=== PATIENT | female | born 1945 | race Caucasian/White ===

== ENCOUNTER → 2017-11-01 10:39 | Outpatient (CLI) | payer BC, SELFPAY ==
--- NOTE | 2017-11-01 10:42 | BI_ITS ---
MAMMOGRAPHY - BILATERAL SCREENING REASON FOR EXAM: Female, 71 years old. Routine annual screening examination. PERTINENT HISTORY: Mother with breast cancer. Aunts with breast cancer. TECHNIQUE: Digital bilateral breast jamaal (3D mammographic acquisition) in the CC and MLO projections. 2-D mediolateral oblique (MLO) and craniocaudad (CC) views of both breasts were obtained. CAD: Full Field Digital Mammography with Computer Added Detection was performed. COMPARISON: Comparison is made with prior study dated October 27, 2016 and October 27, 2015. FINDINGS: Breast Composition: The breasts are heterogeneously dense, which may obscure small masses. There are no dominant masses or suspicious calcifications. No other significant abnormalities are identified. There has been no significant change since the prior study. BI/SCREENING MAMM (CAD), BILAT IMPRESSION: Stable bilateral screening mammogram. Yearly follow-up mammogram recommended. (A) ASSESSMENT CATEGORY: BIRADS Category 1: Negative. A letter regarding these results will be sent to the patient by the facility within 30 days. Approximately 10% of breast cancers are not detected by mammography. A normal mammogram should not delay biopsy of a clinically suspicious abnormality. [id number] Electronically Signed: Case Ross MD at 12:11 EDT Tel [phone], Service support ,
== END ==
PROVIDERS: Family Provider Family Medicine; PCP Family Medicine; Visit Provider Family Medicine
DX: Z12.31 Encounter for screening mammogram for malignant neoplasm of breast (principal)
CPT/HCPCS: 77063; 77067

== ENCOUNTER → 2018-03-28 12:58 | Outpatient (CLI) | payer MEDICARE, SELFPAY ==
--- NOTE | 2018-03-28 13:10 | RAD_ITS ---
STUDY: X-RAY - RIGHT HUMERUS REASON FOR EXAM: Female, 72 years old. Right rotator cuff tendinitis. TECHNIQUE: 2 view(s) of the humerus. COMPARISON: None. FINDINGS: Normal visualized humerus. There is no demonstrated fracture or osseous destructive process. There is no demonstrated soft tissue abnormality. RAD/Humerus min 2 Views IMPRESSION: Normal x-ray examination of the right humerus. Electronically Signed: Ryley Parrish MD at 14:39 EDT , Service support ,
== END ==
PROVIDERS: Family Provider Family Medicine; PCP Family Medicine; Referring Provider Family Medicine; Visit Provider Family Medicine
DX: M75.81 Other shoulder lesions, right shoulder (principal)
CPT/HCPCS: 73060

== ENCOUNTER → 2018-04-11 09:48 | Outpatient (CLI) | payer MEDICARE, SELFPAY ==
--- NOTE | 2018-04-11 09:50 | US_ITS ---
STUDY: ABDOMINAL ULTRASOUND REASON FOR EXAM: Female, 72 years old. Elevated liver function tests. Cholelithiasis. Bloating. TECHNIQUE: Transabdominal ultrasound was performed with real-time and static guy scale imaging. TECHNICAL QUALITY: Adequate. COMPARISON: CT abdomen and pelvis October 13, 2015. FINDINGS: Liver: The liver measures 13.8 cm. There is normal echogenicity of the liver from the images provided. The bile ducts are within normal limits. There is hepatic color flow. The direction of portal flow is hepatopetal. There is no demonstrated mass lesion. Gallbladder: Normal distended gallbladder. The gallbladder wall measures 2 mm. There is a negative sonographic Pelaez's sign. There is no pericholecystic fluid. There are multiple echogenic structures within the gallbladder, consistent with multiple gallstones. Largest stone measures 2.1 x 1.6 x 1.4 cm. Gallbladder sludge. Common Bile Duct (C.B.D.): The common bile duct measures 4 mm. Pancreas: Normal size of the head, body and tail of the pancreas. There is normal echogenicity of the pancreas. There is no demonstrated pancreatic mass or cyst. Spleen: Normal size of the spleen. The spleen measures 8.6 cm. Right Kidney: Normal size of the right kidney. The right kidney measures 10.5 cm. Normal renal cortex. The right cortex measures 1.5 cm. There is no demonstrated renal mass or cyst. There is no right hydronephrosis. 3 mm nonobstructing renal calculus. Left Kidney: Normal size of the left kidney. The left kidney measures 10.9 cm. Normal renal cortex. The left cortex measures 1.8 cm. Renal simple cysts measuring 1.0 x 0.9 x 0.8 cm and 0.9 x 0.8 x 0.8 cm. There is no left hydronephrosis. 3 mm nonobstructing renal calculus. Aorta: Not dilated , mild atherosclerotic plaque. I.V.C.: The IVC is patent. There is no ascites. US/Abdomen Complete IMPRESSION: Cholelithiasis noted previously. Small simple left renal cysts. Small bilateral nonobstructing renal calculi. Electronically Signed: Hema Evans MD at 6:13 EST , Service support ,
== END ==
PROVIDERS: Family Provider Family Medicine; PCP Family Medicine; Referring Provider Family Medicine; Visit Provider Family Medicine
DX: R94.5 Abnormal results of liver function studies (principal)
CPT/HCPCS: 76700

== ENCOUNTER → 2018-11-10 10:41 | Outpatient (CLI) | payer MEDICARE, SELFPAY ==
--- NOTE | 2018-11-10 10:47 | BI_ITS ---
MAMMOGRAPHY - BILATERAL SCREENING REASON FOR EXAM: Female, 72 years old. Routine annual screening examination. PERTINENT HISTORY: Mother with breast cancer. Aunts with breast cancer. TECHNIQUE: Digital bilateral breast adalberto (3D mammographic acquisition) in the CC and MLO projections. 2-D mediolateral oblique (MLO) and craniocaudad (CC) views of both breasts were obtained. CAD: Full Field Digital Mammography with Computer Added Detection was performed. COMPARISON: Comparison is made with prior study dated November 01, 2017 and October 27, 2016. FINDINGS: Breast Composition: The breasts are heterogeneously dense, which may obscure small masses. There are no dominant masses or suspicious calcifications. No other significant abnormalities are identified. There has been no significant change since the prior study. BI/SCREEN MAMM (CAD) W/ADALBERTO BILAT IMPRESSION: Stable bilateral screening mammogram. Yearly follow-up mammogram recommended. (A) ASSESSMENT CATEGORY: BIRADS Category 1: Negative. A letter regarding these results will be sent to the patient by the facility within 30 days. Approximately 10% of breast cancers are not detected by mammography. A normal mammogram should not delay biopsy of a clinically suspicious abnormality. [id number] Electronically Signed: Case Ross, at 13:33 EDT , Service support ,
== END ==
PROVIDERS: Family Provider Family Medicine; PCP Family Medicine; Referring Provider Family Medicine; Visit Provider Family Medicine
DX: Z12.31 Encounter for screening mammogram for malignant neoplasm of breast (principal)
CPT/HCPCS: 77063; 77067

== ENCOUNTER → 2019-03-19 10:58 | Outpatient (CLI) | payer MEDICARE, SELFPAY ==
--- NOTE | 2019-03-19 11:30 | RAD_ITS ---
STUDY: X-RAY - RIGHT SHOULDER REASON FOR EXAM: Female, 73 years old. PAIN IN PROXIMAL RIGHT HUMERUS INTO SHOULDER FOR ABOUT 3 MONTHS. TECHNIQUE: 4 view(s) of the shoulder. COMPARISON: None. FINDINGS: Normal glenohumeral articulation. There is degenerative arthrosis of the acromioclavicular joint without inferior osseous spur formation. Normal acromion. Normal humeral head and visualized proximal humerus. The soft tissue structures are unremarkable. Normal visualized pulmonary apex. RAD/Shoulder min 2 Views IMPRESSION: There is degenerative arthrosis of the acromioclavicular joint. Electronically Signed: Abhi Toledo, at 8:17 EDT Tel , Service support ,
== END ==
PROVIDERS: Family Provider Family Medicine; PCP Family Medicine; Referring Provider Family Medicine; Visit Provider Family Medicine
DX: M75.81 Other shoulder lesions, right shoulder (principal)
CPT/HCPCS: 73030

== ENCOUNTER → 2019-07-03 10:21 | Outpatient (CLI) | payer MEDICARE, SELFPAY ==
--- NOTE | 2019-07-03 10:28 | RAD_ITS ---
STUDY: X-RAY - LEFT SHOULDER REASON FOR EXAM: Female, 73 years old. Pt. States she had an injury just before 2018, large object fell off of a shelf and hit her mid humerus. Still having mid humeral pain, Ordering doctor requested two view shoulder.... included mid humerus to show area of actual pain TECHNIQUE: 4 view(s) of the shoulder. COMPARISON: None. FINDINGS: Normal glenohumeral articulation. There is degenerative arthrosis of the acromioclavicular joint without inferior osseous spur formation. Normal acromion. Normal humeral head and visualized proximal humerus. There is periarticular soft tissue calcification consistent with a calcific tendinitis. Normal visualized pulmonary apex. RAD/Shoulder min 2 Views IMPRESSION: Mild bony osteopenia. Calcific tendinosis. No visualized acute fracture. Electronically Signed: Fara Saha MD at 23:48 EST Tel , Service support ,
== END ==
LOC: RAD 10:25
PROVIDERS: PCP Family Medicine; Referring Provider Family Medicine; Visit Provider Family Medicine
DX: M79.602 Pain in left arm (principal)
CPT/HCPCS: 73030

== ENCOUNTER → 2019-11-16 11:38 | Outpatient (CLI) | payer MEDICARE, SELFPAY ==
--- NOTE | 2019-11-16 11:56 | BI_ITS ---
MAMMOGRAPHY - BILATERAL SCREENING REASON FOR EXAM: Female, 73 years old. Routine annual screening examination. PERTINENT HISTORY: Mother with breast cancer. Aunts with breast cancer. TECHNIQUE: Digital bilateral breast adalberto (3D mammographic acquisition) in the CC and MLO projections. 2-D mediolateral oblique (MLO) and craniocaudad (CC) views of both breasts were obtained. CAD: Full Field Digital Mammography with Computer Added Detection was performed. COMPARISON: Comparison is made with prior study dated November 10, 2018 and November 01, 2017. FINDINGS: Breast Composition: The breasts are heterogeneously dense, which may obscure small masses. There are no dominant masses or suspicious calcifications. No other significant abnormalities are identified. There has been no significant change since the prior study. BI/SCREEN MAMM (CAD) W/ADALBERTO BILAT IMPRESSION: Stable bilateral screening mammogram. Yearly follow-up mammogram recommended. (A) ASSESSMENT CATEGORY: BIRADS Category 1: Negative. A letter regarding these results will be sent to the patient by the facility within 30 days. Approximately 10% of breast cancers are not detected by mammography. A normal mammogram should not delay biopsy of a clinically suspicious abnormality. [id number] Electronically Signed: Case Ross, at 13:16 EDT , Service support ,
== END ==
PROVIDERS: PCP Family Medicine; Referring Provider Family Medicine; Visit Provider Family Medicine
DX: Z12.31 Encounter for screening mammogram for malignant neoplasm of breast (principal); Z80.3 Family history of malignant neoplasm of breast
CPT/HCPCS: 77063; 77067

== ENCOUNTER → 2020-11-17 10:17 | Outpatient (CLI) | payer MEDICARE, SELFPAY ==
--- NOTE | 2020-11-17 10:20 | BI_ITS ---
MAMMOGRAPHY - BILATERAL SCREENING REASON FOR EXAM: Female, 75 years old. Routine annual screening examination. PERTINENT HISTORY: Mother with breast cancer. Aunts with breast cancer. TECHNIQUE: Digital bilateral breast adalebrto (3D mammographic acquisition) in the CC and MLO projections. 2-D mediolateral oblique (MLO) and craniocaudad (CC) views of both breasts were obtained. CAD: Full Field Digital Mammography with Computer Added Detection was performed. COMPARISON: Comparison is made with prior study dated 11/16/2019 and 11/10/2018. FINDINGS: Breast Composition: The breasts are heterogeneously dense, which may obscure small masses. There are no dominant masses or suspicious calcifications. No other significant abnormalities are identified. There has been no significant change since the prior study. BI/SCRN MAMM (CAD)W/ADALBERTO BILAT IMPRESSION: Stable bilateral screening mammogram. Yearly follow-up mammogram recommended. (A) ASSESSMENT CATEGORY: BIRADS Category 1: Negative. A letter regarding these results will be sent to the patient by the facility within 30 days. Approximately 10% of breast cancers are not detected by mammography. A normal mammogram should not delay biopsy of a clinically suspicious abnormality. [id number] Electronically Signed: Case Ross MD at 11:14 EDT , Service support ,
== END ==
PROVIDERS: PCP Family Medicine; Referring Provider Family Medicine; Visit Provider Family Medicine
DX: Z12.31 Encounter for screening mammogram for malignant neoplasm of breast (principal)
CPT/HCPCS: 77063; 77067

== ENCOUNTER → 2020-11-20 10:59 | Outpatient (CLI) | payer MEDICARE, SELFPAY ==
--- NOTE | 2020-11-20 11:20 | RAD_ITS ---
STUDY: X-RAY - LEFT SHOULDER REASON FOR EXAM: Female, 75 years old. L UPPER ARM PAIN TECHNIQUE: 4 view(s) of the shoulder. COMPARISON: None. FINDINGS: Normal glenohumeral articulation. Normal acromioclavicular joint. Normal acromion. Normal humeral head and visualized proximal humerus. The soft tissue structures are unremarkable. Normal visualized pulmonary apex. RAD/Shoulder min 2 Views IMPRESSION: Normal x-ray examination of the shoulder. Electronically Signed: Case Ross MD at 15:42 EDT , Service support ,
--- NOTE | 2020-11-20 11:20 | RAD_ITS ---
STUDY: X-RAY - LEFT HUMERUS REASON FOR EXAM: Female, 75 years old. L UPPER ARM PAIN TECHNIQUE: 2 view(s) of the humerus. COMPARISON: None. FINDINGS: Normal visualized humerus. There is no demonstrated fracture or osseous destructive process. There is no demonstrated soft tissue abnormality. RAD/Humerus min 2 Views IMPRESSION: Normal x-ray examination of the humerus. Electronically Signed: Case Ross MD at 15:42 EDT , Service support ,
== END ==
PROVIDERS: PCP Family Medicine
DX: M79.622 Pain in left upper arm (principal)
CPT/HCPCS: 73030; 73060

== ENCOUNTER → 2021-02-05 10:05 | Outpatient (CLI) | payer MEDICARE, SELFPAY ==
--- NOTE | 2021-02-05 10:07 | RAD_ITS ---
STUDY: X-RAY - LUMBAR SPINE REASON FOR EXAM: Female, 75 years old. Low back pain TECHNIQUE: 6 view(s) of the lumbar spine were obtained. COMPARISON: None FINDINGS: Normal lumbar lordosis. There is a dextroscoliosis of the lumbar spine. There is a normal alignment of the vertebrae in the lateral view. There is multilevel endplate spondylosis of the lumbar vertebrae. There is multi-level degenerative disc disease with multi-level disc space narrowing. There is no demonstrated fracture. There is a calcific density over the lower pole the left kidney which may represent a stone. RAD/L/S Spine Min 4 Views IMPRESSION: Degenerative changes of the spine, as detailed above. Scoliosis Possible left nephrolithiasis Electronically Signed: Ryley Power MD at 11:34 EDT , Service support ,
== END ==
PROVIDERS: PCP Family Medicine; Referring Provider Family Medicine; Visit Provider Family Medicine
DX: M51.37 Other intervertebral disc degeneration, lumbosacral region (principal)
CPT/HCPCS: 72110

== ENCOUNTER → 2021-11-26 | Outpatient (CLI) | payer MEDICARE, SELFPAY ==
--- NOTE | 2021-11-26 10:39 | BI_ITS ---
MAMMOGRAPHY - BILATERAL SCREENING REASON FOR EXAM: Female, 76 years old. Routine annual screening examination. PERTINENT HISTORY: Mother with breast cancer. Aunt with breast cancer. TECHNIQUE: Digital bilateral breast adalberto (3D mammographic acquisition) in the CC and MLO projections. 2-D mediolateral oblique (MLO) and craniocaudad (CC) views of both breasts were obtained. CAD: Full Field Digital Mammography with Computer Added Detection was performed. COMPARISON: Mammogram from 11/17/2020, 11/16/2019, 11/10/2018, 11/01/2017. FINDINGS: Breast Composition: The breasts are heterogeneously dense, which may obscure small masses. There are no dominant masses or suspicious calcifications. No other significant abnormalities are identified. There has been no significant change since the prior study. BI/SCRN MAMM (CAD)W/ADALBERTO BILAT IMPRESSION: Stable bilateral screening mammogram. Yearly follow-up mammogram recommended. (A) ASSESSMENT CATEGORY: BIRADS Category 1: Negative. A letter regarding these results will be sent to the patient by the facility within 30 days. Approximately 10% of breast cancers are not detected by mammography. A normal mammogram should not delay biopsy of a clinically suspicious abnormality. [id number] Electronically Signed: Vince Hill, at 15:58 EDT ,
== END | disposition home or self-care (01) ==
PROVIDERS: PCP Family Medicine; Visit Provider Family Medicine
DX: Z12.31 Encounter for screening mammogram for malignant neoplasm of breast (principal); Z80.3 Family history of malignant neoplasm of breast
CPT/HCPCS: 77063; 77067

== ENCOUNTER → 2021-12-21 | Outpatient (CLI) | payer MEDICARE, SELFPAY ==
--- NOTE | 2021-12-21 10:31 | US_ITS ---
STUDY: ABDOMINAL ULTRASOUND - RIGHT UPPER QUADRANT REASON FOR VISIT: Female, 76 years old ELEVATED LFTS TECHNIQUE: Ultrasound evaluation of the right upper quadrant was performed with real-time and static guy-scale imaging. TECHNICAL QUALITY: Adequate. COMPARISON: Comparison is made with prior sonogram dated 04/11/2018. FINDINGS: Liver: The liver measures 14.5 cm. There is increased echogenicity consistent with mild fatty infiltration. The bile ducts are within normal limits. There is hepatic color flow. The direction of portal flow is hepatopetal. There is no demonstrated mass lesion. Gallbladder: Normal distended gallbladder. The gallbladder wall measures 2.4 mm. There is a negative sonographic Pelaez''s sign. There is no pericholecystic fluid. There are multiple echogenic structures within the gallbladder, consistent with multiple gallstones. The largest gallstone measures 2.1 cm x 1.8 cm x 1.6 cm. Sludge is also seen within the gallbladder lumen. Common Bile Duct (C.B.D.): The common bile duct measures 2.7 mm. Pancreas: Normal size of the head, body and tail of the pancreas. There is normal echogenicity of the pancreas. There is no demonstrated pancreatic mass or cyst. Right Kidney: Normal size of the right kidney. The right kidney measures 11.3 cm x 4.9 cm x 3.5 cm. Normal renal cortex. The right cortex measures 1.2 cm. There is no demonstrated renal mass or cyst. There is no right hydronephrosis. US/Abdomen Limited IMPRESSION: Multiple gallstones. Mild degree of fatty infiltration of the liver. Electronically Signed: Case Ross MD at 12:29 EDT ,
== END | disposition home or self-care (01) ==
LOC: US 10:29
PROVIDERS: PCP Family Medicine; Referring Provider Family Medicine; Visit Provider Family Medicine
DX: R79.89 Other specified abnormal findings of blood chemistry (principal)
CPT/HCPCS: 76705

== ENCOUNTER 2022-01-28 14:54 | Observation (INO) | payer MEDICARE, SELFPAY ==
--- NOTE | 2022-01-26 09:48 | EKG12_ITS ---
Test Reason : PRE-OP Blood Pressure : / mmHG Vent. Rate : 056 BPM Atrial Rate : 056 BPM P-R Int : 170 ms QRS Dur : 090 ms QT Int : 414 ms P-R-T Axes : 069 -18 053 degrees QTc Int : 399 ms Sinus bradycardia Low voltage QRS (Limb Leads) Confirmed by DYLAN AMBRIZ, CAITLYN ([id number]), purchase request editor RICK IVERSON ([id number]) on 01/27/2022 11:31:46 AM Referred By: Bruce Banda Confirmed By:CAITLYN RICHARDSON MD
[2022-01-26 10:53] LABS: Lipase 145 U/L (73-393)
[2022-01-27 14:00] VITALS: BP 145/108; BP 149/63; PULSE 78; RESP 16; O2SAT 97
[2022-01-28] VITALS (14 sets, daily range): BP systolic 111–171; BP diastolic 38–116; PULSE 54–90; RESP 15–18; TEMP 36.4–37.1; O2SAT 94–99; BMI 22.6
--- NOTE | 2022-01-28 | GALL_PTH ---
PATIENT: DOREEN BLUNT LOC: [facility] U#:[id number] AGE/SX: 76/F ROOM: [facility] RE01/28/[address]: Dr. Bruce Banda MD : [id number] BED: 1 DIS: 01/29/2022 SPEC #: [id number] RECD: 01/28/22 13:25 STATUS: EDDIE JOHNSON #: [id number] BILLY: 01/28/22 00:[address]: Bruce Banda DEPT: SURGICAL PATHOLOGY RECD BY: Hermilo Gong ENTERED: 01/28/22 13:26 SP TYPE: PADMINI SPARKS DR: Dr. Charlie Bradford DO Tissues: Gallbladder, NOS Procedures: Surgery Specimen Level III HEADER OPERATION: Laparoscopic cholecystectomy with IOC PRE-OP DIAGNOSIS: Cholelithiasis with chronic cholecystitis TISSUE SUBMITTED: Gallbladder MICROSCOPIC DIAGNOSIS Gallbladder, cholecystectomy: Mild chronic cholecystitis and cholelithiasis. SJ:melani 01/29/2022 MICROSCOPIC DESCRIPTION Slides are reviewed. GROSS DESCRIPTION Received is one container labeled with the patient's name and designated gallbladder. The specimen consists of a gallbladder measuring 11 x 2.7 x 3.5 cm. The external surface is smooth and glistening. Focally, it is granular, hemorrhagic and contains cautery artifact. The lumen of the gallbladder contains green mucoid bile and multiple yellow-green calculi averaging 1.75 cm in greatest dimension. The mucosa is bile-stained and without any mass lesions. The gallbladder wall averages 0.2 cm in thickness and is free of mass lesions. Hand Violin Maker sections of the gallbladder and the cystic duct at margin of resection are submitted in one cassette. / AM:melani 01/28/2022 TC:3 CPT: 19750
--- NOTE | 2022-01-28 09:45 | DCINST_ITS ---
Discharge Instructions Procedure General Surgery Diet Discharge Diet: Light diet - advance as tolerated (if you have questions about your diet instructions, please talk to you doctor.) Activity Discharge Activity: May Not Drive (for 3-5 days or while taking narcotic pain medicine.) May shower in (days): 1 Lifting Restrictions: 10 pounds Dressing / Incision Call your doctor if your incision/area has: Continuous Slow Oozing, Sudden Increased Bleeding, Increased Pain/ Swelling, Increased Redness and Foul Smelling Discharge Call your doctor if you observe: Fever of 101 or Higher Suture Line Care: Avoid Pulling/Pushing and Avoid Pinching/Bending Additional Dressing/Incision Instructions:: Change or remove dressing in 4 days. Leave steri-strips in place for 1 week. Follow Up Care Please Follow Up With: Bruce Banda MD When: Call [phone] to make an appointment to be seen in about 10 days. Test Results: Test results from this visit will be discussed in further detail at your follow- up appointment, if applicable. Discharge Plan Admission Attending Provider: Bruce Banda Primary Care Provider: Charlie Bradford Discharge Orders/Prescriptions Prescriptions: No Action benazepril 10 mg tablet 10 tablet PO DAILY tramadol 50 mg tablet 1 ea PO TID PRN (Reason: Pain) Label Comments: take 1 tablet by mouth twice a day if needed for pain for UP TO 30 DAYS raloxifene 60 mg tablet 60 tablet PO DAILY polyethylene glycol 3350 [Laxative PEG 3350] 17 gram/dose powder 17 gm PO DAILY Label Comments: DISSOLVE 17 GRAMS (1 CAPFUL) IN LIQUID AND DRINK DAILY NEEDED FOR CONSTIPATION. meloxicam 15 mg tablet 15 tablet PO DAILY metoprolol succinate 100 mg tablet extended release 24 hr 100 tablet PO DAILY Stool Softener 50 mg capsule 50 mg PO DAILY multivitamin Tablet 1 tab PO DAILY cholecalciferol (vitamin D3) [Vitamin D3] 50 mcg (2,000 unit) Capsule 50 mcg PO DAILY calcium citrate-vitamin D3 [Citracal + D Maximum] 315 mg-6.25 mcg (250 unit) Tablet 2 tab PO DAILY Other Ambulatory Orders: 12 Lead EKG (Routine) Timeframe: [id number] Location: None Selected Ordered By: Dr. Bruce Banda Referrals / Follow Up: Charlie Bradford DO [Primary Care Provider] - Disposition Disposition (needs filled in before D/C Order can be placed): Home, Self Care
--- NOTE | 2022-01-28 09:45 | PCM.HP.BLA ---
History and Physical Date of Admission: 01/28/22 Allergies clindamycin Allergy (Mild, Verified 01/18/22 13:52) Otherpromethazine [From Phenergan] Allergy (Mild, Verified 01/18/22 13:52) Other Medications benazepril 10 mg tablet tablet PO 01/18/22 [History Confirmed 01/18/22] docusate sodium 50 mg capsule (Stool Softener) 50 mg PO DAILY 01/18/22 [History Confirmed 01/18/22] meloxicam 15 mg tablet tablet PO 01/18/22 [History Confirmed 01/18/22] metoprolol succinate 100 mg tablet,extended release 24 hr tablet PO 01/18/22 [History Confirmed 01/18/22] multivitamin 1 tab PO DAILY 01/18/22 [History Confirmed 01/18/22] polyethylene glycol 3350 17 gram/dose oral powder (Laxative PEG 3350) gm PO 01/18/22 [History Confirmed 01/18/22] raloxifene 60 mg tablet tablet PO 01/18/22 [History Confirmed 01/18/22] tramadol 50 mg tablet ea PO 01/18/22 [History Confirmed 01/18/22] Nurse's Note: Patient requested BP recheck: 154/65 [facility] Medical History?(Updated 01/18/22 @ 15:[address] Bruce Banda MD) Back pain Constipation HTN (hypertension) Surgical History?(Updated 01/18/22 @ 13:48 by Alejandra Banks) S/P hernia repair S/P hysterectomy Family History?(Updated 01/18/22 @ 13:49 by Alejandra Bansk) Mother Colon cancer Breast cancer HypertensionAunt Breast cancerFather Hypertension Social History Smoking Status:? Former smoker alcohol intake:? current HPI HPI HPI: DOREEN BLUNT, is a 76 F who presents to the office today for surgical consultation regarding gallstones.? Patient is referred by Charlie Bradford DO and a written copy of my surgical consult recommendations will return to him.? Per the patient's past medical history she has had known gallstones based upon CT imaging in 2016. The patient is referred today because of a variety of symptoms.? She states that she has had known gallstones for an extended period of time.? She complains of bloating and mid abdominal pain.? More recently she feels that this is becoming worse.? She is having nausea some cramping but no vomiting.? No fever chills or sweats. Approximately September [address] Phuc Morataya she had a colonoscopy.? Apparently a tortuous colon was encountered but no acute lesions.? Diverticulosis.? The patient's mother had colon cancer but there was no evidence of that.? The patient has had a history of chronic constipation.? She takes a stool softener and polyethylene glycol.? She denies bright red blood per rectum or melena. She has chronic back pain.? She wears a support.? 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 On this occasion however she is convinced that her gallbladder is etiologic to her increased abdominal bloating.? At the [facility] on December 21, 2021 she had a right upper quadrant ultrasound.? Normal distended gallbladder.? Gallbladder wall is 2.4 mm.? Pelaez sign at that time was negative.? No pericholecystic fluid.? Multiple gallstones noted.? The largest gallstone measures 2.1 x 1.8 x 1.6 cm.? Sludge is seen within the gallbladder lumen.? The common bile duct measures 2.7 mm.? Mild degree of fatty infiltration of the liver. We have laboratory of December 02, 2021 which demonstrated BUN of 13 creatinine 0.55.? Total bilirubin 0.5 with a alk phos of 89 and ALT slightly to 58 with AST of 74.? Cholesterol is normal at 166.? As of December 10, 2021 white count was 5.9 with a he will 12.8 hematocrit 39 platelet count 211,000.? Normal differential ROS General General: No weight change, appetite, fatigue, colon cancer, breast cancer or weakness HEENT HEENT: No difficulty swallowing, eye injury, eye surgery, swollen glands or hoarseness Endo Endocrine: No thyroid disease, diabetes mellitus, thyroid cancer, Hair loss, heat intolerance or cold intolerance Skin Skin: No rash or changing moles Breast Breast: No left breast lump, right breast lump, nipple discharge, breast pain, abnormal mammogram, abnormal US or breast enlargement Musc Musculoskeletal: Yes back problems and arthritis; No rheumatoid arthritis, gout or joint pain Cardio Cardiovascular: Yes high blood pressure; No murmur, pacemaker, heart disease, atrial fibrillation, heart attack, heart stent, palpitations, shortness of breat with exertion or chest pain Psych Psychiatric: No depression, anxiety or hearing voices Resp Respiratory: No shortness of breath, No sleep apnea, No cough, No COPD, No asthma, No emphysema and No wheezing Gastro Gastrointestinal: Yes abdominal pain, Yes nausea or vomiting, No diarrhea, Yes constipation, No blood in stool, No acid reflux, No hemorrhoids, No ulcers, Yes gallbladder problem and No black,tarry stools Rick Hematologic: No blood thinners, No blood disorders, No bleeding, No anemia and No blood clots Neuro Neurologic: No system reviewed and no additional complaints, except as documented, No as per HPI, No abnormal gait, No abnormal hearing, No abnormal movements, No abnormal speech, No behavioral changes, No burning sensations, No confusion, No convulsions, No disequilibrium, No dizziness, No localized weakness, No frequent falls, No headache(s), No lack of coordination, No loss of vision, No memory loss, No numbness, No other visual disturbances, No radicular pain, No restless legs, No sensory deficit, No syncope, No tingling, No tremor(s), No weakness and No other Exam Const General: cooperative Nutritional Appearance: average body habitus Orientation: alert and awake Other: Patient is not in acute distress but moves cautiously because of her back.? She is wearing a Velcro back support. [facility] Head: normal to inspection Eyes General: appearance normal, both eyes and all related structures Neck Neck: normal visual inspection Carotids: normal carotid upstroke Chest Other: Notable kyphosis of the chest. Resp Effort & Inspection: normal respiratory effort Auscultation: clear to auscultation bilaterally Cardio Rate: regular rate Rhythm: regular rhythm GI Other: Soft, distended softly lower abdomen, mildly tender to deep palpation right upper quadrant without palpable mass, bowel sounds present and active but otherwise nonspecific, no focal abdominal mass, no tenderness other than in the right upper quadrant, no guarding or rebound Skin General: no rashes or lesions noted Neuro General: patient alert and patient awake Other: Right base unsteady gait, patient does utilize a cane for support Extrem General: no calf tenderness Psych Appearance: grossly normal Assessment and Plan Assessment and Plan (1) Cholelithiasis with chronic cholecystitis: ?Status:?Chronic ?Plan: 76-year-old female with a complexity of presenting issues.? Her abdominal bloating and discomfort may be indeed secondary to primary bowel issues however the patient is convinced that her current presentation is secondary to active gallbladder disease.? She is mildly tender to palpation in the right upper quadrant and her previous liver function tests November 2021 demonstrated slight hepatocellular abnormality.? Her gallbladder ultrasound certainly abnormal for small and large stone. I propose for her a laparoscopic cholecystectomy with selective cholangiograms and in detail I have discussed the technique, benefit, risk of alternatives.? The patient is very much aware that this may assist with her abdominal pain and bloating complaints but that there are no guarantees of resolution.? She was noted to have a tortuous bowel on examination per Dr. Phuc Morataya and pending the patient's postoperative course and she might benefit from further GI work-up and follow-up. She has had an opportunity to ask and have questions answered.? She would like to schedule and proceed.? We will repeat liver function test preoperatively.? I appreciate the opportunity of assisting with her surgical care. Copy: Charlie Bradford , DO Bruce Banda M.D., F.A.C.S I have re-examined the patient. There are no clinical changes since date of exam. Bruce Banda M.D., F.A.C.S.
[2022-01-28] MEDS: Lactated Ringers 1,000 ML 15 ML IV ×2 (10:16→13:11)
--- NOTE | 2022-01-28 11:35 | RAD_ITS ---
STUDY: INTRAOPERATIVE CHOLANGIOGRAM. REASON FOR EXAM: Female, 76 years old. Laparoscopic cholecystectomy. FLUOROSCOPY TIME (if supplied): ( 41.7 seconds ) minutes/seconds. A cine loop of 57 images were submitted. TECHNIQUE: An intraoperative cholangiogram was performed by the surgeon. Imaging was provided. COMPARISON: None. FINDINGS: The common bile duct is unremarkable. No intraluminal filling defect is seen. There is free flow of contrast into the duodenum. RAD/Cholangiogram/ O R,Initial IMPRESSION: Unremarkable intraoperative cholangiogram. Electronically Signed: Case Ross MD at 14:30 EDT ,
[2022-01-28] MEDS: Cefazolin 2 GM in 0.9% Normal Saline 100 ML IV (11:48)
[2022-01-28] MEDS: Bupivacaine 0.25% 30 ML Vial (12:42)
--- NOTE | 2022-01-28 12:49 | OP.PCM_ITS ---
Report of Operation Date of Procedure: 01/28/22 Pre-Operative Diagnosis: Chronic cholecystitis cholelithiasis Post-Operative Diagnosis: Same Surgery/Procedure Performed:: Laparoscopic cholecystectomy with cholangiography Description of Surgical Findings:: Timeout informed consent was obtained. 76-year-old female was taken to the operating placed upon the table underwent general endotracheal intubation esthesia Ancef 2 g were given intravenously the abdomen sterilely prepped and draped 0.25% Marcaine was used as a local anesthetic throughout the procedure a total of 30 cc was used skin sites were. Excised a vertical supraumbilical in cision was created holding sutures of 0 Vicryl placed varies needle inserted saline drop test performed the abdomen was insufflated with CO2 to a pressure of 10 mmHg pressure 10 mm trocar was inserted 10 mm laparoscope inserted no evidence of any trocar injuries. The abdomen was inspected. Gallbladder was enlarged. There were adhesions of omentum to the gallbladder. Therapy and safe trocar insertion. 5 mm trochars were placed in the epigastric right upper quadrant right lateral upper quadrant areas the gallbladder was distracted the omental adhesions were taken down with sharp blunt and electrocautery dissection. The infundibular area was identified blunt dissection performed until clearly the cystic duct cystic artery identified and a very clear critical view was achieved. 2 Hem-o-viry clips were placed proximally 1 distally on the cystic artery and it was transected. The cystic duct was milked back to the gallbladder and secured with a Hem-o-viry clip incision was made in the cystic duct and through a 14-gauge Angiocath cholangiogram catheter was inserted fluoroscopically controlled cholangiograms were obtained. This initially demonstrated a slightly dilated proper hepatic duct and intrahepatic ducts with no flow distally. The patient received a milligram of glucagon IV. After adequate circulation time cholangiogram was repeated this demonstrated flow into the distal common bile duct with inflow into the small bowel. There was relative narrowing of the ampullary area but I suspected this was in due to part due to spasm due to the contrast. The cholangiogram catheter was removed. There was no undue bile return suggesting distal obstruction. 2 Hem-o-viry clips were placed on the cystic duct stump prior to transecting it. The gallbladder was dissected free from the liver with electrocautery. Hemostasis was completely intact. The gallbladder was placed in a retrieval bag. The right upper quadrant was irrigated and aspirated free of excess fluid. The gallbladder was exited the umbilicus because of an enlarged stone the fascia incision had to be slightly enlarged. The abdomen was allowed to deflate through an antiviral valve. The fascia at the umbilicus approximated with 2 [id number] sutures of 0 Vicryl. Skin edges approximated opted for Monocryl subdermal stitches. Steri-Strips Telfa OpSite dressings applied. Sponge and instrument and needle counts were reported to the surgeon to be correct Specimen gallbladder. Drains none. Blood loss minimal. The patient was taken to the recovery room in satisfactory addition without apparent complication Bruce Banda M.D., F.A.C.S. Surgeon: Bruce Banda
--- NOTE | 2022-01-28 14:20 | EKG12_ITS ---
Test Reason : Blood Pressure : / mmHG Vent. Rate : 062 BPM Atrial Rate : 062 BPM P-R Int : 158 ms QRS Dur : 094 ms QT Int : 444 ms P-R-T Axes : 067 -35 071 degrees QTc Int : 450 ms Normal sinus rhythm Left axis deviation Low voltage QRS Incomplete right bundle branch block Abnormal ECG When compared with ECG of 28-JAN-2022 14:26, MANUAL COMPARISON REQUIRED, DATA IS UNCONFIRMED Confirmed by LETTY AMBRIZ, CHAISTY ([id number]), health editor RICK IVERSON ([id number]) on 02/01/2022 9:46:48 AM Referred By: Bruce Banda Confirmed By:ORLANDO SAENZ MD
--- NOTE | 2022-01-28 14:24 | PCM.PN.SRG ---
Subjective Subjective Patient is in PACU. I have been notified by Dr. German Diaz that the monitor demonstrates atrial fibrillation. The patient denies chest pain. She denies any previous history of abnormal cardiac rhythm. Objective Data Objective Data Vital Signs: Vital Signs Temp Pulse Resp BP Pulse Ox O2 Del Method O2 Flow Rate 97.8 F 78 16 164/116 H 94 Nasal Cannula 4 01/28/22 13:05 01/28/22 13:45 01/28/22 13:45 01/28/22 13:45 01/28/22 13:45 01/28/22 13:45 01/28/22 13:45 Oxygen Flow Rate (L/min) 4 Oxygen Delivery Method Nasal Cannula Weight: 124 lb Body Mass Index (BMI) 22.6 Intake & Output: Intake and Output for Last 24 Hours 01/26/22 01/27/22 01/28/22 23:59 23:59 23:59 Intake Total 110 / 110 Balance 110 / 110 Assessment & Plan Assessment/Plan (1) Cholelithiasis with chronic cholecystitis: (2) Atrial fibrillation: PLAN: Plan Plans were for routine outpatient laparoscopic cholecystectomy for chronic cholecystitis cholelithiasis. Patient is demonstrating what appears to be atrial fibrillation. The hospitalist service has been very kind to see my patient and provide recommendations and treatment.
--- NOTE | 2022-01-28 14:26 | EKG12_ITS ---
Test Reason : IRREGULAR HR Blood Pressure : / mmHG Vent. Rate : 086 BPM Atrial Rate : 375 BPM P-R Int : 000 ms QRS Dur : 086 ms QT Int : 400 ms P-R-T Axes : 000 -35 -12 degrees QTc Int : 478 ms Atrial fibrillation Left axis deviation Nonspecific ST abnormality Abnormal ECG When compared with ECG of 26-JAN-2022 10:02, Atrial fibrillation has replaced Sinus rhythm Vent. rate has increased BY 30 BPM QT has lengthened Confirmed by LETTY AMBRIZ, CHASITY ([id number]), editorial director RICK IVERSON ([id number]) on 02/01/2022 9:53:13 AM Referred By: Bruce Banda Confirmed By:ORLANDO SAENZ MD
--- NOTE | 2022-01-28 14:44 | CON.PCM.HO_ITS ---
Assessment & Plan Assessment/Plan (1) Atrial fibrillation: PLAN: Plan #New onset afib * noted to be in afib after she had an elective laparoscopic cholecystectomy * admit to PCU * continue metoprolol * order 2D echo. Check TSH * CHADVASC score: 4 * will therefore need to be anticoagulated, but since she just had surgery today, will start on anticoagulation tomorrow to decrease risk of bleeding at surgical site * #Nonstemi * initial troponin was elevated at 107, and trended upwards to 129; elevated troponin may also be as a result of new onset afib * unable to anticoagulate as she just had surgery today * give aspirin 325mg x 1 and high intensity statin * 2D echo ordered * cardiology consulted * #CHronic cholecystitis with cholelithiasis * s/p laparoscopic cholecystectomy today by general surgery * pain meds prn * #Hypertension: on metoprolol and benazepril, will continue. IV hydralazine prn. DVT prophylaxis: SCDs Code status: * I did discuss code status with patient, including differences between full code, DNRCC and DNRCCA; patient said she wanted everything that needed to be done to save her life. * I informed her that this meant she was ok with intubation and CPR as needed, and she agreed. * Patient therefore elects to be full code. * total face to face time: 16 mins HPI Consult Data Date of Consult: 01/28/22 HPI Narrative Reason for Consultation: atrial fibrillation HPI Narrative: DOREEN BLUNT, is a 76 F with a PMH as outlined who was admitted to the general surgery service on 01/28/2022 for outpatient cholecystectomy.Post op, she was noted to be in afib, so hospitalist service was consulted. She denied any history of afib. She denied any chest pain, palpitations, lightheadedness, dizziness, any thyroid issues, any nausea, vomiting or any history of sleep apnea. Review of systems was otherwise negative. EKG in the EMR doone on 01/27/1011 showed HR of 56, with sinus bradycardia. She has no echo in the EMR. She is being admitted to be managed for new onset afib. [facility] Medical History (Updated 01/28/22 @ 14:[address] Bruce Banda MD) Alcohol use Ambulates with cane Arthritis Back pain Constipation Former smoker HTN (hypertension) Injury of head and neck Marijuana use Post-menopausal Rheumatoid arthritis Substance abuse Wears glasses Home Medications benazepril 10 mg tablet 10 tablet PO DAILY 01/18/22 [History Last Taken 01/28/22] docusate sodium 50 mg capsule (Stool Softener) 50 mg PO DAILY 01/18/22 [History Last Taken Unknown] meloxicam 15 mg tablet 15 tablet PO DAILY 01/18/22 [History Last Taken Unknown] metoprolol succinate 100 mg tablet,extended release 24 hr 100 tablet PO DAILY 01/18/22 [History Last Taken 01/28/22] multivitamin 1 tab PO DAILY 01/18/22 [History Last Taken Unknown] polyethylene glycol 3350 17 gram/dose oral powder (Laxative PEG 3350) 17 gm PO DAILY 01/18/22 [History Last Taken Unknown] raloxifene 60 mg tablet 60 tablet PO DAILY 01/18/22 [History Last Taken Unknown] tramadol 50 mg tablet 1 ea PO TID PRN Pain 01/18/22 [History Last Taken Unknown] calcium citrate 315 mg calcium-vitamin D3 6.25 mcg (250 unit) tablet (Citracal + Vitamin D Maximum) 2 tab PO DAILY 01/22/22 [History Last Taken Unknown] cholecalciferol (vitamin D3) 50 mcg (2,000 unit) capsule (Vitamin D3) 50 mcg PO DAILY 01/22/22 [History Last Taken Unknown] Allergy/AdvReac Type Severity Reaction Status Date / Time clindamycin Allergy Mild Other Verified 01/18/22 13:52 promethazine [From Phenergan] Allergy Mild Other Verified 01/18/22 13:52 Family History (Updated 01/18/22 @ 13:49 by Alejandra Banks) Mother Colon cancer Breast cancer Hypertension Aunt Breast cancer Father Hypertension Surgical History S/P hernia repair S/P hysterectomy Social History (Updated 01/18/22 @ 13:50 by Alejandra Banks) Smoking Status: Former smoker alcohol intake: current ROS Constitutional Constitutional: Reports fatigue and malaise; Denies anorexia, change in weight, chills, fever(s) or weakness Eyes Eyes: Denies change in vision ENT HEENT: Denies dysphagia or headache(s) Cardiovascular Cardiovascular: Denies chest pain, dyspnea on exertion, edema, lightheadedness or orthopnea Respiratory/Chest Respiratory/Chest: Denies cough, dyspnea, productive cough, shortness of breath at rest or shortness of breath with exertion Gastrointestinal Gastrointestinal: Denies abdominal pain, constipation, diarrhea, nausea or vomiting Genitourinary Genitourinary: Denies dysuria Musculoskeletal Musculoskeletal: Denies back pain Neurologic Neurologic: Denies confusion, dizziness, focal weakness, syncope or tingling Psychiatric Psychiatric: Denies anxiety Hematologic/Lymphatic Hematologic/Lymphatic: Denies anemia Physical Exam Const alert and oriented x3 General Appearance: cooperative HEENT normocephalic, head/scalp atraumatic, hearing grossly normal bilaterally and moist oral mucous membranes Eyes PERRL, EOMs intact bilaterally and conjunctivae normal Neck no lymphadenopathy, supple and no JVD Resp normal respiratory effort, no retractions, no use of accessory muscles and clear to auscultation bilaterally Cardio regular rate, S1 normal heart sound, S2 normal heart sound and no murmurs Cardio Narrative: afib, rate controlled GI normal to inspection, nondistended, normoactive bowel sounds, soft to palpation, non-tender and non-distended GI Narrative: intact dressing over laparoscopic surgical sites Extremity normal to inspection, full ROM and no clubbing, cyanosis or edema Neuro oriented x3, CN's II-XII intact bilaterally, moves all extremities and no focal motor deficits Sensorium / Orientation: awake and alert Motor Exam: strength 5/5 throughout Psych Mood & Affect: anxious Radiology Impression Cholangiogram 01/28/22 11:35 IMPRESSION: Unremarkable intraoperative cholangiogram. Electronically Signed: Case Ross MD at 14:30 EDT , Charges/Coding Visit Charges Office Visits / Consults: 19155 IP Consult L5 Procedures Hospitalists Procedures: 91970 Advncd Care Plan 30 Min
--- NOTE | 2022-01-28 15:47 | ECHOCS_ITS ---
Reason For Study: Afib/Flutter Procedure This was a 2D Doppler, Color Flow transthoracic echocardiogram. The study was technically difficult. Contrast injection was performed. Exam performed portable in patient room. Left Ventricle Normal LV size. The estimated ejection fraction is 65 %. Normal diastology for age. No regional wall motion abnormalities noted. Right Ventricle Normal RV size. Normal systolic function. Atria Normal left atrium. Normal right atrium. No doppler evidence for ASD. Mitral Valve There is no mitral valve stenosis. Trivial mitral valve insufficiency. Tricuspid Valve There is no tricuspid stenosis. Trivial tricuspid valve insufficiency. Pulmonary artery systolic pressure is 30 mmHg. Aortic Valve Trisinus/trileaflet aortic valve. Aortic sclerosis, no stenosis. There is no aortic stenosis. No aortic valve insufficiency. Pulmonic Valve There is no pulmonic valvular stenosis. No pulmonic valve insufficiency. Great Vessels Normal aortic root. Pericardium/Pleural No pericardial effusion. Medication Diluted definity 2ml given slow IV push to enhance endocardial definition. MMode/2D Measurements & Calculations LVIDd: 4.5 cm IVSd: 0.60 cm Ao root diam: 2.9 cm LVIDs: 3.0 cm LVPWd: 0.61 cm LA dimension: 3.3 cm RVDd: 3.5 cm FS: 33.3 % LAV(MOD-bp): 41.0 ml LA A4 area: 16.5 cm2 RA A4 area: 16.4 cm2 LAV(MOD-bp) Indexed: 26.4 ml/m2 LAV(MOD-sp2): 37.4 ml LAV(MOD-sp4): 40.3 ml Time Measurements MV dec time: 0.22 sec Doppler Measurements & Calculations MV E max daivs: 84.6 cm/sec Lat Peak E' Davis: 11.0 cm/sec Med Peak E' Davis: 12.7 cm/sec MV A max davis: 55.2 cm/sec E/E' lat: 7.7 E/E' med: 6.6 MV E/A: 1.5 MV V2 max: 95.0 cm/sec MV P1/2t max davis: 95.0 cm/sec Ao V2 max: 123.1 cm/sec MV max P.6 mmHg MV P1/2t: 79.6 msec Ao max P.1 mmHg MV V2 mean: 45.8 cm/sec MV dec slope: 349.4 cm/sec2 MV mean P.0 mmHg MV V2 VTI: 34.4 cm MVA(P1/2t): 2.8 cm2 LV V1 max: 112.4 cm/sec PA V2 max: 74.2 cm/sec TR max davis: 242.6 cm/sec LV V1 max P.1 mmHg TR max P.5 mmHg LV V1 mean P.6 mmHg LV V1 mean: 76.0 cm/sec LV V1 VTI: 23.3 cm ECHO/Echo Complete W/ Contrast Interpretation Summary The estimated ejection fraction is 65 %. Trivial mitral valve insufficiency. Ordering Physician: Meron Lan Referring Physician: Bruce Banda Performed By: Taj Larose RCS
[2022-01-28 16:35] LABS: Thyroid Stim Hormone (TSH) 0.46 uIU/mL (0.358-3.74)
[2022-01-28 17:01] LABS: Troponin-I HS 107 pg/mL (3.0-54.0)
[2022-01-28 18:57] LABS: Troponin-I HS 129 pg/mL (3.0-54.0)
[2022-01-28] MEDS: Atorvastatin Calcium 40 MG Tablet PO (19:46)
--- NOTE | 2022-01-28 19:53 | PCM.HOSP.N ---
Hospitalist Note Patient is adamantly refusing aspirin therapy despite discussions regarding the safety with her current medications per staff. She reports she was told prior that taking ASA could have severe interactions with her medication but she cannot state the medication of concern. Requested staff obtain the physician information and this individual may need to be reached in AM to encourage patient appropriate medication usage.
[2022-01-28 22:27] LABS: Troponin-I HS 118 pg/mL (3.0-54.0)
[2022-01-29] VITALS (7 sets, daily range): BP systolic 100–132; BP diastolic 36–54; PULSE 47–61; RESP 16–18; TEMP 36.4–36.7; O2SAT 96–100
[2022-01-29] MEDS: traMADol 50 MG Tablet PO (00:57)
--- NOTE | 2022-01-29 06:42 | PCM.PN.SRG ---
Subjective Subjective Patient is comfortable no particular abdominal complaints. She does complain of severe back pain secondary to the bed. She desperately would like to be discharged. Objective Data Objective Data Vital Signs: Vital Signs Temp Pulse Resp BP Pulse Ox O2 Del Method O2 Flow Rate 97.5 F L 52 L 18 100/36 L 96 Room Air 2 01/29/22 02:40 01/29/22 02:59 01/29/22 02:40 01/29/22 02:40 01/29/22 02:40 01/29/22 02:40 01/28/22 16:30 Oxygen Flow Rate (L/min) 2 Oxygen Delivery Method Room Air Weight: 123 lb 15.808 oz Body Mass Index (BMI) 22.6 Intake & Output: Intake and Output for Last 24 Hours 01/27/22 01/28/22 01/29/22 23:59 23:59 23:59 Intake Total 2310 / 2410 100 / 100 Output Total 30 / 30 Balance 2280 / 2380 100 / 100 Lab / Micro Data Labs: Laboratory Results - last 24 hr 01/28/22 10:13: TSH 0.46 01/28/22 16:15: Troponin I High Sens 107 H 01/28/22 18:12: Troponin I High Sens 129 H* 01/28/22 21:30: Troponin I High Sens 118 H Radiography Diagnostic Testing: Radiology Impression Cholangiogram 01/28/22 11:35 IMPRESSION: Unremarkable intraoperative cholangiogram. Electronically Signed: Case Ross MD at 14:30 EDT , Physical Exam Narrative Alert, no acute distress, comfortable Resp normal respiratory effort Cardio regular rate and regular rhythm Cardio Narrative: Regular rate and rhythm. Normal sinus rhythm on monitor with prolonged [place] GI GI Narrative: Soft, nontender Assessment & Plan Assessment/Plan (1) Cholelithiasis with chronic cholecystitis: PLAN: Patient was provided postoperative surgical instructions regarding diet activity wound care management. She is aware that she is ready for surgical discharge. Ongoing hospitalization and care will be per hospitalist service. Very much appreciate the assistance. The patient will have an office surgical follow-up in 10 days. Bruce Banda M.D., F.A.C.S.
--- NOTE | 2022-01-29 09:33 | PN.HOSP_ITS ---
Subjective Subjective Follow-up for paroxysmal A. fib and elevated troponin Patient stated that she did not had chest pain/pressure/tightness, dizziness lightheadedness, palpitation shortness of breath, nausea vomiting during [place].. Earlier patient was admitted to general surgery for outpatient lap sheryl. Postop patient was noted to be in A. fib therefore hospitalist service was consulted. Previous EKG of January 2011 shows heart rate of sinus bradycardia at 56 bpm. In the morning today she wants to go home. On cardiac exercise specialist sinus bradycardia heart rate 40 to 45/min. Later on, heart rate picked up and 60s per minute Objective Data Objective Data Vital Signs: Vital Signs Temp Pulse Resp BP Pulse Ox O2 Del Method O2 Flow Rate 97.8 F 49 L 16 132/46 H 100 Room Air 2 01/29/22 08:18 01/29/22 08:18 01/29/22 08:18 01/29/22 08:18 01/29/22 08:18 01/29/22 08:18 01/28/22 16:30 Oxygen Flow Rate (L/min) 2 Oxygen Delivery Method Room Air Weight: 123 lb 15.808 oz Body Mass Index (BMI) 22.6 Intake & Output: Intake and Output for Last 24 Hours 01/27/22 01/28/22 01/29/22 23:59 23:59 23:59 Intake Total 2310 / 2410 100 / 100 Output Total 30 / 30 Balance 2280 / 2380 100 / 100 Lab / Micro Data Labs: Laboratory Results - last 24 hr 01/28/22 10:13: TSH 0.46 01/28/22 16:15: Troponin I High Sens 107 H 01/28/22 18:12: Troponin I High Sens 129 H* 01/28/22 21:30: Troponin I High Sens 118 H Radiography Diagnostic Testing: Radiology Impression Cholangiogram 01/28/22 11:35 IMPRESSION: Unremarkable intraoperative cholangiogram. Electronically Signed: Case Ross MD at 14:30 EDT , Physical Exam Narrative Seen and examined on the day of discharge. General: Alert, Oriented x3, Cooperative HEENT: Atraumatic, PERRLA, EOMI, Normocephalic Oral: No Gingival or Mucosal Lesions/ Ulcerations Neck: Supple, No JVD, Negative Carotid Bruits Lungs: Air entry equal in bilateral lung bases. No crepitation/rhonchi Cardiovascular: Sinus bradycardia, Normal S1, Normal S2, No murmurs Abdomen: Lap sheryl operative ports are dry. Soft, mild expected postop tenderness in RUQ. Nondistended, bowel sound present. : No renal angle tenderness. No suprapubic tenderness. Extremities: No edema, Capillary Refill Less than 3 Seconds Skin: No rashes, No breakdown Musculoskeletal: No Tenderness to Palpation of Joints or Extremities Neurological: Cranial nerves II-XII grossly intact, DTR 2+/4 and Symmetrical, Neuro grossly intact Psych/Mental Status: Normal Affect, Appropriate. Assessment & Plan Assessment/Plan (1) Atrial fibrillation: PLAN: Plan This 76-year-old female was seen as a follow-up after hospital service was c onsulted for new onset A. fib and elevated troponin. Patient does not have any new cardiopulmonary symptoms. #New onset afib: She denies any previous history of A. fib. Postop EKG on 01/28, 1549 hrs. shows normal sinus rhythm at 62 beats minute, low voltage QRS, QTC 450 ms. Patient on metoprolol succinate 100 mg daily, dose hold for the day and decreased to 50 mg daily from tomorrow a.m. with holding parameters. Discussed with the green pipefitter. She had A. fib new onset during surgery. She denies prior history of A. fib. Discussed with the to see the, Dr. Ashby and 2D echo was reviewed. EF 65% with trivial MR. Normal diastole for age. Then I discussed the option of anticoagulant with surgeon Dr. Bruce Banda and he said it is between the medicine team and the patient to decide and there is risk for bleeding after major intra-abdominal surgery. I discussed with the patient. 2 options were given, #1 which is preferred is taking newer anticoagulant, DOAC with high with high [id number] score of 4. The other option is 30-day event monitor which has risk of thromboembolism/stroke and then follow-up with a green pipefitter to see the load of A. fib and decide about anticoagulant. She preferred the first option and wanted Xarelto since it is once daily. Prescription for Xarelto 20 mg once daily given to be started after 5 days on 02/03/2022. The risk of bleeding including intra-abdominal, intracranial or GI bleed discussed with the patient. Patient does not want to take aspirin as her primary doctor said there is an interaction with medication patient does not know. On my review of her home medication I do not see major interaction with baby aspirin. 2. Elevated troponin: I do not think patient had non-STEMI. The first troponin 107-second 06/06/2028 and third trended down 118. Patient did not had any chest pain or shortness of breath or palpitation. It might be due to A. fib or due to demand ischemia, type II DC. She does not have a history of coronary artery disease or DC in the past. Discussed with the green pipefitter advised to follow-up as an outpatient in [address] Cruz in 1 month. 3. Coronary cholecystitis cholelithiasis: Status post lap sheryl. Patient is doing fine rest as mentioned above. Patient is discharged by surgeon Dr. Bruce Banda. Follow-up in outpatient as instructed by the surgeon. #Hypertension: on metoprolol and benazepril: Blood pressure is normal. Home medication reconciliation done. DVT prophylaxis: SCDs Code status: Full code. Total time of the visit including total time spent in counseling or coordination of care, (more than 50% of the total time, spent in obtaining medical information from nurses and other ancillary care providers,explaining to the patient about labs, imaging, diagnosis and management of active complex medical conditions), discussion with green pipefitter and the surgeon, discussion of benefits and risk of anticoagulant with the patient, review of labs and imaging is 45 minutes. Charges/Coding Visit Charges Inpatient E&M: 18693 Subs Hosp L3
[2022-01-29] MEDS: Metoprolol(XL)Succ 50 MG Tablet PO (10:21)
[2022-01-29] MEDS: Lisinopril 10 MG Tablet PO (10:21)
[2022-01-29] MEDS: Polyethylene Glycol 3350 17 GM PACKET PO (10:21)
[2022-01-29] MEDS: Raloxifene HCl 60 MG Tablet PO (10:21)
== END 2022-01-29 06:45 | disposition home or self-care (01) ==
LOC: PCU 17:41 → SDC 01-29 14:05
PROVIDERS: Student in an Organized Health Care Education/Training Program; Admitting Provider Surgery; PCP Family Medicine; Referring Provider Surgery; Visit Provider Surgery
PROC: (CPT 47610; principal; 2022-01-28 12:15)
DX: K80.10 Calculus of gallbladder with chronic cholecystitis without obstruction (principal); M06.9 Rheumatoid arthritis, unspecified; I48.0 Paroxysmal atrial fibrillation; R00.1 Bradycardia, unspecified; K76.0 Fatty (change of) liver, not elsewhere classified; K83.8 Other specified diseases of biliary tract; Z87.19 Personal history of other diseases of the digestive system; Z87.891 Personal history of nicotine dependence; M54.9 Dorsalgia, unspecified; G89.29 Other chronic pain; I10 Essential (primary) hypertension; Z79.899 Other long term (current) drug therapy
CPT/HCPCS: 47563; 00790; 36415; 74300; 76000; 83690; 84443; 84484; 88304; 93005; 93306; 99218; 99251; J7120; Q9957; A4216; C8929; G0378; G0463; J1610; J2405

== ENCOUNTER → 2022-12-01 | Outpatient (CLI) | payer MEDICARE, SELFPAY ==
--- NOTE | 2022-12-01 12:04 | BI_ITS ---
MAMMOGRAPHY - BILATERAL SCREENING REASON FOR EXAM: Female, 77 years old. Routine annual screening examination. PERTINENT HISTORY: Mother with breast cancer. Aunt with breast cancer. TECHNIQUE: Digital bilateral breast adalberto (3D mammographic acquisition) in the CC and MLO projections. 2-D mediolateral oblique (MLO) and craniocaudad (CC) views of both breasts were obtained. CAD: Full Field Digital Mammography with Computer Added Detection was performed. COMPARISON: Comparison is made with prior study dated November 26, 2021 and November 17, 2020. FINDINGS: Breast Composition: The breasts are heterogeneously dense, which may obscure small masses. There are no dominant masses or suspicious calcifications. No other significant abnormalities are identified. There has been no significant change since the prior study. BI/SCRN MAMM (CAD)W/ADALBERTO BILAT IMPRESSION: Stable bilateral screening mammogram. Yearly follow-up mammogram recommended. (A) ASSESSMENT CATEGORY: BIRADS Category 1: Negative. A letter regarding these results will be sent to the patient by the facility within 30 days. Approximately 10% of breast cancers are not detected by mammography. A normal mammogram should not delay biopsy of a clinically suspicious abnormality. [id number] Electronically Signed: Case Ross MD at 14:05 EDT ,
== END | disposition home or self-care (01) ==
LOC: OPBI 11:59
PROVIDERS: PCP Family Medicine; Referring Provider Family Medicine; Visit Provider Family Medicine
DX: Z12.31 Encounter for screening mammogram for malignant neoplasm of breast (principal); Z80.3 Family history of malignant neoplasm of breast
CPT/HCPCS: 77063; 77067

== ENCOUNTER → 2023-12-06 | Outpatient (CLI) | payer MEDICARE, SELFPAY ==
--- NOTE | 2023-12-06 10:29 | BI_ITS ---
MAMMOGRAPHY - BILATERAL SCREENING 3-D TOMOSYNTHESIS REASON FOR EXAM: Female, 78 years old. SCREENING PERTINENT HISTORY: No significant family history. TECHNIQUE: 2-D mammograms and 3-D Tomosynthesis of the breast (s) were performed. CAD was performed. COMPARISON: 12/01/2022 FINDINGS: The breast composition is heterogeneously dense that can obscure small breast masses. Scattered benign calcifications are seen. No dense spiculated masses or suspicious microcalcifications are identified. No architectural distortion is identified. There is no skin thickening or retraction. There has been no significant change since the prior study. BI/SCRN MAMM (CAD)W/ADALBERTO BILAT IMPRESSION: No mammographic signs of malignancy. Routine yearly mammograms recommended. ASSESSMENT CATEGORY: BIRADS Category 1: Negative. A letter regarding these results will be sent to the patient by the facility within 30 days. FOLLOW UP RECOMMENDATION: Yearly follow up mammogram recommended. (A) Approximately 10% of breast cancers are not detected by mammography. A normal mammogram should not delay biopsy of a clinically suspicious abnormality. Electronically Signed: David Irene MD at 19:03 EDT ,
== END | disposition home or self-care (01) ==
LOC: OPBI 10:27
PROVIDERS: PCP Family Medicine; Referring Provider Family Medicine; Visit Provider Family Medicine
DX: Z12.31 Encounter for screening mammogram for malignant neoplasm of breast (principal)
CPT/HCPCS: 77063; 77067

== ENCOUNTER → 2024-12-21 | Outpatient (CLI) | payer MEDICARE, SELFPAY ==
--- NOTE | 2024-12-21 10:09 | BI_ITS ---
EXAM: SCRN MAMM (CAD)W/ADALBERTO BILAT DATE: 12/21/2024 CLINICAL HISTORY: F, Age 79 y/o , SCREENING TECHNIQUE: SCRN MAMM (CAD)W/ADALBERTO BILAT COMPARISON: Prior exam(s) were compared FINDINGS: TISSUE DENSITY: The breasts are heterogeneously dense, which may obscure small masses. Bilateral Breast Mammographic Findings: Right breast: There is questionable architectural distortion in the upper right breast. Left breast: No suspicious masses, calcifications or other abnormalities are identified. BI/SCRN MAMM (CAD)W/ADALBERTO BILAT IMPRESSION: Additional diagnostic imaging is recommended of the right breast with diagnosti c right breast mammography and possible ultrasound. No mammographic evidence of malignancy in the left breast. OVERALL FINAL ASSESSMENT BI-RADS 0: INCOMPLETE - NEED ADDITIONAL IMAGING EVALUATION. RECOMMENDATION: Additional Views obtained/call backs A letter with findings and recommendations will be mailed to the patient. Reading Location: [id number]
== END | disposition home or self-care (01) ==
LOC: OPBI 10:07
PROVIDERS: PCP Family Medicine; Referring Provider Family Medicine; Visit Provider Family Medicine
DX: Z12.31 Encounter for screening mammogram for malignant neoplasm of breast (principal)
CPT/HCPCS: 77063; 77067

== ENCOUNTER → 2025-01-03 | Outpatient (CLI) | payer MEDICARE, SELFPAY | END | disposition home or self-care (01) | PROVIDERS: PCP Family Medicine; Referring Provider Family Medicine; Visit Provider Family Medicine | DX: R92.8 Other abnormal and inconclusive findings on diagnostic imaging of breast (principal) | CPT/HCPCS: 76642; 77061; 77065; G0279 ==